=== PATIENT | male | born 1985 | race Caucasian/White ===

== ENCOUNTER 2023-05-22 11:16 | Emergency (ER) | payer OTHER, BC ==
[2023-05-22] MEDS ORDERED: Acetaminophen 500 MG Tab PO ONE (13:32)
[2023-05-22] MEDS ORDERED: Diphtheria,Pertussis(Acell),Tetanus Vaccine 0.5 ML Syringe IM ONE (13:32)
== END 2023-05-22 14:04 | disposition home or self-care (01) ==
LOC: JP.ED 11:16
DX: S01.01XA Laceration without foreign body of scalp, initial encounter (principal); Z88.8 Allergy status to other drugs, medicaments and biological substances; Z79.899 Other long term (current) drug therapy; W20.8XXA Other cause of strike by thrown, projected or falling object, initial encounter
CPT/HCPCS: 12002; 90471; 90715; 99282; A9270